=== PATIENT | male | born 1995 | race Caucasian/White ===

== ENCOUNTER → 2019-01-19 | Day surgery (SDC) | payer OTHER, BC ==
[~2019-01-19] VITALS: Ht 182.9 cm; Wt 117.9 kg
[~2019-01-19] MED LIST: ASPI325T8 PO; BUPIVACAINE MPF 0.25% 30 ML VIAL. ONE; BUPIVACAINE-EPI 0.25%-1:200000 MPF 30 ML VIAL. INJ ONE; CLIN300C8 PO; CLINDAMYCIN 900MG PREMIX 50 ML IV ONE; DEXAMETHASONE SOD PHOS 4 MG/ML VIAL ONE; HYDROmorphone 2 MG/ML VIAL IV PRN; IV RINGERS,LACTATED 1000ML 1,000 ML IV SCH; KETOROLAC 30 MG/ML VIAL. ONE; LIDOCAINE 1% PF 2 ML VIAL. ID PRN; LIDOCAINE 2% PF 5 ML VIAL. ONE; MIDAZOLAM HCL/PF 2 MG/2 ML VIAL. ONE; MORPHINE SULFATE 2 MG/ML VIAL. IV PRN; ONDANSETRON PF 4 MG/2 ML VIAL. IV PRN; ONDANSETRON PF 4 MG/2 ML VIAL. ONE; OXYC1TAB15 PO; PHENYLEPHRINE in 0.9% NACL PF 1 MG/10 ML SYRINGE. IV ONE; PROCHLORPERAZINE 10 MG/2 ML VIAL. IV PRN; PROM25TA10 PO; PROPOFOL 20 ML IV ONE; SEVOFLURANE 61 TO 120 MINUTES. IH ONE; TRAM50TA PO; fentaNYL PF VIAL 100 MCG/2 ML VIAL IV PRN; fentaNYL PF VIAL 100 MCG/2 ML VIAL ONE; oxyCODONE/APAP 5/325 1 TAB TABLET ONE; oxyCODONE/APAP 5/325 1 TAB TABLET PO PRN
[2019-01-19 13:50] VITALS: BP 160/87
--- NOTE | 2019-01-19 14:05 | PDOC4 ---
Operative Note Operative Note Date of Procedure: January 19, 2019 Pre-Op Diagnosis: infection left ankle after open treatment internal fixation of the fracture T84.625A Post-Op Diagnosis: same Procedure: incision and drainage left ankle CPT 44543 Surgeon: Joye Armas MD Anesthesia: General EBL: 10 mL Specimens Obtained: none Complications: none Drains: none Findings: Indications for Procedure: The patient is a 23-year-old man with recent ankle fracture surgery. He has drainage from the lateral surgical incision which persists despite oral antibiotics. The patient and I discussed the risks, benefits and alternatives of surgery. I recommended open treatment with irrigation and debridement and further antibiotics. Discussed the possibility she will need IV antibiotics, and that he might need hardware removal to resolve the infection, but hardware removal is not recommended at this time. All of his questions about surgery were answered and he desires to proceed. Procedure in Detail: The patient was identified in the preoperative holding area. The correct left anklewas marked by me. The patient was taken to the operating room where general anesthesia was used. The patient was positioned supine on the operating table. Antibiotics were held until after cultures were taken. A timeout procedure was performed. A tourniquet was applied to the upper limb. The limb was prepared in sterile fashion with surgical prep solution. Sterile drapes were applied. The previous arpit were removed. The incision was bluntly opened with scissors at the area where there was drainage, and cultures were taken. A rongeurs was used for excisional debridement of the nonviable fibrinous tissue and some nonviable skin. There was no obvious pus. The Femi [employer] dinkey engine firer was used, and copious saline irrigation was used. The syndesmosis screws were checked for tightness with a screwdriver, and there is no loosening. Betadine irrigation was used. Final saline irrigation was used with the Joaquin interpulse dinkey engine firer and then outer gloves were changed. The wound was now closed in layers with #2-0 PDS suture in the subcutaneous tissues. Needle and sponge counts were correct. Next, #2-0 nylon suture was used for skin approximation using the trauma suture pattern: far/near/near/far. Secure closure was obtained. Sterile dressings were applied. There were no ap parent complications. JOEY ARMAS MD Jan 19, 2019 14:04
--- NOTE | 2019-01-19 14:36 | PDOC1 ---
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 Here for incision, drainage and cultures. Past Surgical History Past Surgical History ankle fracture surgery 01/01/19 Social History Smoke: No Current Medications Current Medications Current Medications Ondansetron HCl (Zofran) 4 mg PRN Q6HRS PRN IV NAUSEA/VOMITING; Start 01/19/19 at 07:00; Stop 01/20/19 at 06:59 Fentanyl Citrate (Fentanyl 2ml Vial) 25 mcg PRN Q5MIN PRN IV MILD PAIN 1-3 Last administered on 01/19/19at 13:59; Start 01/19/19 at 07:00; Stop 01/20/19 at 06:59 Fentanyl Citrate (Fentanyl 2ml Vial) 50 mcg PRN Q5MIN PRN IV MODERATE TO SEVERE PAIN; Start 01/19/19 at 07:00; Stop 01/20/19 at 06:59 Morphine Sulfate (Morphine Sulfate) 1 mg PRN Q10MIN PRN IV SEVERE PAIN 7-10; Start 01/19/19 at 07:00; Stop 01/20/19 at 06:59 Ringer's Solution 1,000 ml @ 30 mls/hr Q24H IV Last administered on 01/19/19at 11:23; Start 01/19/19 at 07:00; Stop 01/19/19 at 18:59 Lidocaine HCl (Xylocaine-Mpf 1% 2ml Vial) 2 ml PRN 1X PRN ID PRIOR TO IV START; Start 01/19/19 at 07:00; Stop 01/20/19 at 06:59 Hydromorphone HCl (Dilaudid) 0.5 mg PRN Q10MIN PRN IV SEV PAIN, Second choice; Start 01/19/19 at 07:00; Stop 01/20/19 at 06:59 Prochlorperazine Edisylate (Compazine) 5 mg PACU PRN PRN IV NAUSEA, MRX1; Start 01/19/19 at 07:00; Stop 01/20/19 at 06:59 Bupivacaine HCl/ Epinephrine Bitart (Sensorcaine-Epi 0.25%-1:[id number] Mpf) 30 ml 1X ONCE INJ ; Start 01/19/19 at 06:30; Stop 01/19/19 at 06:31; Status DC Sevoflurane (Ultane) 60 ml STK-MED ONCE IH ; Start 01/19/19 at 10:44; Stop 01/19/19 at 10:44; Status DC Dexamethasone Sodium Phosphate (Decadron) 4 mg STK-MED ONCE .ROUTE ; Start 01/19/19 at 10:44; Stop 01/19/19 at 10:44; Status DC Propofol 20 ml @ As Directed STK-MED ONCE IV ; Start 01/19/19 at 10:44; Stop 01/19/19 at 10:44; Status DC Lidocaine HCl (Lidocaine Pf 2% Vial) 5 ml STK-MED ONCE .ROUTE ; Start 01/19/19 at 10:44; Stop 01/19/19 at 10:44; Status DC Ketorolac Tromethamine (Toradol 30mg Vial) 30 mg STK-MED ONCE .ROUTE ; Start 01/19/19 at 10:44; Stop 01/19/19 at 10:44; Status DC Ondansetron HCl (Zofran) 4 mg STK-MED ONCE .ROUTE ; Start 01/19/19 at 10:44; Stop 01/19/19 at 10:44; Status DC Midazolam HCl (Versed) 2 mg STK-MED ONCE .ROUTE ; Start 01/19/19 at 11:43; Stop 01/19/19 at 11:43; Status DC Fentanyl Citrate (Fentanyl 2ml Vial) 100 mcg STK-MED ONCE .ROUTE ; Start at 12:22; Stop 01/19/19 at 12:22; Status DC Clindamycin Phosphate 50 ml @ As Directed STK-MED ONCE IV ; Start 01/19/19 at 12:40; Stop 01/19/19 at 12:40; Status DC Phenylephrine HCl (PHENYLEPHRINE in 0.9% NACL PF) 1 mg STK-MED ONCE IV ; Start 01/19/19 at 13:01; Stop 01/19/19 at 13:01; Status DC Bupivacaine HCl (Sensorcaine Mpf 0.25%) 30 ml STK-MED ONCE .ROUTE Last administ ered on 01/19/19at 13:12; Start 01/19/19 at 13:08; Stop 01/19/19 at 13:08; Status DC Propofol 20 ml @ As Directed STK-MED ONCE IV ; Start 01/19/19 at 13:08; Stop 01/19/19 at 13:08; Status DC Fentanyl Citrate (Fentanyl 2ml Vial) 100 mcg STK-MED ONCE .ROUTE ; Start 01/19/19 at 13:55; Stop 01/19/19 at 13:55; Status DC Active Scripts Active Percocet 5-325 Mg Tablet (Oxycodone/Acetaminophen) 1 Each Tablet 1-2 Tab PO PRN Q4HRS PRN 14 Days Reported Tramadol Hcl 50 Mg Tablet 50 Mg PO Q6HRS PRN Clindamycin Hcl 300 Mg Capsule 300 Mg PO Q6HRS Promethazine Hcl 25 Mg Tablet 25 Mg PO Q6H PRN Aspirin 325 Mg Tablet 325 Mg PO DAILY Allergies Allergies: Coded Allergies: amoxicillin (Verified Allergy, Intermediate, Unknown, 01/19/19) ROS General: No: Chills, Night Sweats Physical Exam General: Alert, Cooperative HEENT: Atraumatic Lungs: Normal air movement Heart: RRR Abdomen: Soft Extremities: Other (LEFT ankle shows an intact stapled incision at the most proximal and distal aspect, although the midportion has still not healed and still shows concerning drainage. There is slight erythema and swelling over the incision site with some associated tenderness.) Skin: Other (as above) Neuro: Normal speech, Sensation intact Vitals Vitals Vital Signs Date Time Temp Pulse Resp B/P (MAP) Pulse Ox O2 Delivery O2 Flow Rate FiO2 01/19/19 13:59 16 100 Room Air 01/19/19 13:50 97.5 71 160/87 97.5 Labs Labs Laboratory Tests Test 01/19/19 10:59 Erythrocyte Sedimentation Rate 44 (0-15) C-Reactive Protein, Quantitative 13.7 mg/L (0-3.3) 25-Hydroxy Vitamin D Total 25.2 ng/mL (30-100) Laboratory Tests Test 01/19/19 10:59 Erythrocyte Sedimentation Rate 44 (0-15) C-Reactive Protein, Quantitative 13.7 mg/L (0-3.3) 25-Hydroxy Vitamin D Total 25.2 ng/mL (30-100) VTE Prophylaxis Ordered VTE Prophylaxis Devices: Yes VTE Pharmacological Prophylaxi: Yes Assessment/Plan Assessment/Plan ankle with drainage after surgery. possible infection. I recommend incision, drainage, irrigation, cultures and oral antibiotics. He agrees. He is here today for surgery. JOEY CH MD Jan 19, 2019 14:36
== END ==
LOC: SURG 10:18
PROVIDERS: ATTEND Orthopaedic Surgery
DX: T84.625A Infection and inflammatory reaction due to internal fixation device of left fibula, initial encounter (principal); Y83.8 Other surgical procedures as the cause of abnormal reaction of the patient, or of later complication, without mention of misadventure at the time of the procedure; Y92.89 Other specified places as the place of occurrence of the external cause; Z79.899 Other long term (current) drug therapy; Z88.1 Allergy status to other antibiotic agents; Z98.890 Other specified postprocedural states
CPT/HCPCS: 10180; 36415; 82306; 85651; 86140; 87071; 87075; J1100; J1885; J2001; J2250; J2370; J2405; J2704; J3010; J3490; A7015; A4461